=== PATIENT | female | born 1940 | race Caucasian/White ===

== ENCOUNTER 2021-05-27 18:48 | Emergency (ER) | payer MEDICARE, OTHER ==
[~2021-05-27] VITALS: Ht 157.5 cm; Wt 52.2 kg
--- NOTE | 2021-05-27 18:48 | NUR ---
Patient to ER bed 04 to gown for evaluation. Side rails up. Report given to CHAN Munson
[2021-05-27 18:56] VITALS: BP_SYST 163
--- NOTE | 2021-05-27 18:59 | NUR ---
ER Dr. Syed at bedside examining patient.
--- NOTE | 2021-05-27 19:06 | NUR ---
REPORT TO MICHAEL GILES
[2021-05-27] MEDS ORDERED: DIPH-TET-PERTUS Vaccine 0.5 ML VIAL (ADACEL) I.M. ONE (19:15)
[2021-05-27] MEDS ORDERED: LIDOCAINE 1% 10 MG/ML, 20 ML MDV INJ ONE (19:15)
--- NOTE | 2021-05-27 19:16 | NUR ---
RECIEVED PT IN BED, DAUGHTER AT THE BEDSIDE. PT AWKE, ALERT AND ORIENTED. UT REPORTED ABRASION ON RIGHT KAREN. ABRASION CLEANED WITH NORMAL SALINE AND BANDAGE APPLIED. PROVIDED PT WITH COLD COMPRESS FOR SWELLING OF RIGHT CHEEK, AND RIGHT EYE. PT REQUESTING PAIN MEDICATION FOR 10/10 RIGHT CHEEK PAIN SECONDARY TO LACERATION. NOTIFIED MD. WILL MONITOR NEED.
[2021-05-27] MEDS ORDERED: HYDROcodone/ACETAMIN 5-325 MG TAB (NORCO/ VICODIN) PO ONE (19:30)
[2021-05-27] MEDS ORDERED: IBUPROFEN 600 MG TABLET PO ONE (19:30)
[2021-05-27 20:00] VITALS: BP_SYST 144
[2021-05-27] MEDS ORDERED: ERYT-122 PO (20:16)
[2021-05-27] MEDS ORDERED: HYDR-3917 PO (20:16)
[2021-05-27] MEDS ORDERED: DIPH-TET Vacc 0.5 ML VIAL I.M. ONE (20:31)
--- NOTE | 2021-05-27 20:50 | NUR ---
PT WITH NEW ORDERS FOR DISCHARGE HOME WITH DAUGHTER. DISCUSSED HOME CARE INSTRUCTIONS AND NEW PRESCRIPTION WITH PT AND DAUGHTER. DISCHARGE PAPERWORK PROVIDED, ALONG WITH COPY OF VACCINE CONSENT FORM. ALL OF PT'S QUESTIONS ANSWERED AT THIS TIME. INSTRUCTED PT TO RETURN FOR SUTURE REMOVAL IN 7 CALENDAR DAYS. PT AND DAUGHTER VERBALIZED UNDERSTANDING. PT DISCHARGED IN STABLE CONDITON, AMBULATORY WITH ALL BELONGINGS ACCOMPANIED BY DAUGHTER.
== END 2021-05-27 21:00 | disposition home or self-care (01) ==
LOC: SED 18:48
DX: S01.511A Laceration without foreign body of lip, initial encounter (principal); S83.91XA Sprain of unspecified site of right knee, initial encounter; Z88.0 Allergy status to penicillin; W01.0XXA Fall on same level from slipping, tripping and stumbling without subsequent striking against object, initial encounter; Y93.89 Activity, other specified; Y92.89 Other specified places as the place of occurrence of the external cause; Y99.8 Other external cause status
CPT/HCPCS: 12013; 70450; 70486; 73564; 76376; 90471; 90715; 99284; J2001; 90714

== ENCOUNTER 2021-06-04 11:50 | Emergency (ER) | payer MEDICARE ==
[~2021-06-04] VITALS: Ht 152.4 cm; Wt 57.2 kg
[~2021-06-04 11:50] MED LIST: ERYT-122 PO; HYDR-3917 PO
[2021-06-04 11:59] VITALS: BP_SYST 171
[2021-06-04 12:16] VITALS: BP_SYST 171
== END 2021-06-04 12:15 | disposition home or self-care (01) ==
LOC: SED 11:50
DX: S01.511D Laceration without foreign body of lip, subsequent encounter (principal); Z48.02 Encounter for removal of sutures; Z88.0 Allergy status to penicillin; Z79.899 Other long term (current) drug therapy; X58.XXXD Exposure to other specified factors, subsequent encounter
CPT/HCPCS: 99281